=== PATIENT | female | born 1980 | race Caucasian/White ===

== ENCOUNTER 2024-08-17 12:45 | Emergency (ER) | payer BC, OTHER ==
[~2024-08-17] VITALS: Ht 165.1 cm; Wt 91.7 kg
[~2024-08-17 12:45] MED LIST: BUS15T PO; LORA-512 PO; QUET25TA PO; VENL150C50 PO
[2024-08-17 12:56] VITALS: BP 151/73; PULSE 66; TEMP 98.5; O2SAT 98
[2024-08-17 14:58] VITALS: RESP 16
== END 2024-08-17 15:50 | disposition home or self-care (01) ==
LOC: ER 12:45
DX: S43.401A Unspecified sprain of right shoulder joint, initial encounter (principal); Z88.0 Allergy status to penicillin; W01.0XXA Fall on same level from slipping, tripping and stumbling without subsequent striking against object, initial encounter; Y93.89 Activity, other specified; Y92.89 Other specified places as the place of occurrence of the external cause; Y99.8 Other external cause status
CPT/HCPCS: 73030; 99283; A4565

== ENCOUNTER 2024-10-07 09:09 | Emergency (ER) | payer BC, MEDICAID ==
[~2024-10-07] VITALS: Ht 165.1 cm; Wt 89.7 kg
--- NOTE | 2024-10-07 09:53 | RADIOLOGY REPORT ---
CLINICAL INDICATION: RIGHT HAND PAIN TECHNIQUE: 3 radiographic views of the right hand were obtained. Comparison: None FINDINGS/IMPRESSION: There is no evidence of acute fracture or dislocation. The visualized joint space is well maintained. The alignment is anatomical. There is no radiopaque foreign body.
--- NOTE | 2024-10-07 10:52 | Physician Documentation ---
History of Present Illness ~ Chief Complaint: Hand pain Stated Complaint: R HAND PAIN Time Seen by MD: 09:55 OK to notify your PCP?: Yes Primary Medical Doctor: SHAWNA Source: patient Mode of Arrival: POV Exam Limitations: no limitations HPI 44-year-old female who is right-handed here with right hand pain after she hit the back of a door trying to open the door. She states this occurred last night. She has pain and swelling over the top of her hand and states it hurts her when she uses her hand. No pain in her wrist or elbow. Denies any other injuries. No pre arrival treatment. Tetanus within 5 years: No Medication Reconciliation Allergies: Coded Allergies: Penicillins (Verified Allergy, Intermediate, 11/14/12) Erythromycin Lactobionate (Verified Allergy, Unknown, 11/14/12) Scheduled Buspirone Hcl* (Buspar*), 30 MG PO BID, (Reported) Loratadine* (Alavert*), 10 MG PO DAILY, (Reported) Quetiapine Fumarate (Seroquel), 50 MG PO HS, (Reported) Venlafaxine Hcl* (Effexor Xr*), 150 MG PO DAILY, (Reported) Past Medical History Past Medical History: No Pertinent History Past Surgical History: noncontributory Alcohol Use: None Drug Use: none Lives with: Family Lives In: Home Review of Systems All Other Systems at this time: Reviewed and Negative Physical Exam Vital Signs: Temperature: 98.0, Source: Temporal, Heart Rate: 78, Respiratory Rate: 16, BP: 123/67, Pulse Oximetry: 98, Weight: 89.700 Oxygen Flow Rate: 0 Physical Exam General Appearance: Alert, WD/WN. NAD. HEENT: NCAT, PERRL, EOMI. Neck: Supple, trachea midline. Cardiovascular: RRR. No m/r/g. Lungs: CTAB. Breathing unlabored Extremities: Normal inspection. No edema. Skin: Warm/dry, normal color Neurological: Alert and oriented x4, normal gait. Psychiatric: Affect congruent with mood. Talking my saw RUE: Ecchymosis and edema over the dorsal surface 2nd through 5th metacarpals, active range motion of digits is full. Tenderness over the 2nd through 5th metacarpals. No tenderness over the wrist or forearm. AROM of digits full. Procedures Procedures placed in velcro splint right hand Progress Results/Orders Reviewed/noted all lab results: Yes Results/Orders Orders - AJAY PERDUE General Nursing Order (10/07/24 ) Vital Signs 10/07/24 10/07/24 09:14 11:15 Temp 98.0 98.0 Pulse 78 65 Resp 16 15 B/P (MAP) 123/67 122/64 Pulse Ox 98 99 O2 Flow Rate 0 Re-Evaluation Re-Evaluation : Re-Evaluation: Improved Progress improved after velcro splint placed EKG/XRAY/CT/US/VASC/MRI Bone/Soft Tissue X-Ray (Ext.) : Interpreted By: radiologist Views: 3 VIEW Indication: pain Location: hand Impression: soft tissue swelling; No: fracture, dislocation Medical Decision Making Hand Diff Dx:Considerations: Include: Abrasion, Arthritis, Contusion, DJD, Felon, Fracture-carpal, Fracture-metacarpal, Fracture-phalynx, Fracture-radius, Fracture-ulna, Gout, Hematoma, Herpetic kaya, Laceration, Neurovascular injury, Open fracture, Paronychia, Rheumatoid arthritis, Septic, Sprain, Subungual hematoma, Tenosynovitis, Volar plate injury, Cellulitis, Malunion Departure Time of Disposition: 19:01 Disposition: 01 HOME / SELF CARE / HOMELESS Impression: Primary Impression: Hand pain Qualified Codes: M79.641 - Pain in right hand Condition: Stable Discharge Instructions: Contusion (Bruise) Additional Instructions: ICE, ELEVATE, WEAR VELCRO SPLINT UNTIL PAIN IMPROVES F/U WITH PCP NEEDED Departure Forms: Excuse form Work or School Excused From: Work Excuse beginning now through the following date: October 08, 2024 May Return but still avoid physical Activity from now until: October 09, 2024 May Return to full physical activity as of: October 09, 2024 Referrals: NO PRIMARY CARE PROVIDER (PCP) Education Educated: Patient Educated regarding: diagnosis, treatment, need for follow up Signature Scribe Signature: x Attestation: AJAY Ontiveros October 07, 2024 10:52
[2024-10-07 11:15] VITALS: BP 122/64; PULSE 65; RESP 15; TEMP 98; O2SAT 99
== END 2024-10-07 11:12 | disposition home or self-care (01) ==
LOC: ER 09:10
DX: M79.641 Pain in right hand (principal); Z88.0 Allergy status to penicillin; Z88.1 Allergy status to other antibiotic agents; Z79.899 Other long term (current) drug therapy
CPT/HCPCS: 29125; 73130; 99283